=== PATIENT | female | born 1995 | race Caucasian/White ===

== ENCOUNTER 2022-06-28 20:11 | Emergency (ER) | payer OTHER ==
[2022-06-28 21:00] LABS: BASOPHIL 0.1 % (0-2); EOSINOPHIL 0.1 % (0-5); HGB 15.4 g/dl (12.5-16.0); LYMPHOCYTE 17.8 % (15-48); MCH 29.4 pg (25.0-31.0); MONOCYTE 4.3 % (0-12); MPV 10.2 fL (6.0-9.5); NEUTROPHIL 77.4 % (41-80); NRBC 0; PLT 209 K/uL (150-400); RBC 5.24 M/uL (4.20-5.40); RDW 12.4 % (11.5-14.0); WBC 7.9 K/uL (4.0-10.5)
[2022-06-28 21:19] LABS: BUN/CREAT RATIO (CALC) 23.9 RATIO; CREATININE 0.71 mg/dL (0.51-0.95); POTASSIUM 3.6 mmol/L (3.5-5.1)
[2022-06-28 21:26] LABS: BILIRUBIN 1+ mg/dL (NEGATIVE); BLOOD 1+ Ery/uL (NEGATIVE); CLARITY CLEAR (CLEAR); COLOR YELLOW (YELLOW); GLUCOSE (U) NORMAL (NORMAL); LEUKOCYTES 3+ Leu/uL (NEGATIVE); NITRITE NEGATIVE (NEGATIVE); PROTEIN 1+ mg/dL (NEGATIVE); SPECIFIC GRAVITY 1.025 (1.001-1.030); UROBILINOGEN 0.2 mg/dL (0.2-1.0)
[2022-06-28 21:47] LABS: BACTERIA 4+
[2022-06-28] MEDS ORDERED: PERCOCET 5-3251 EACH PO (23:09)
[2022-06-28] MEDS ORDERED: CIPRO500 MG PO (23:09)
== END 2022-06-28 23:30 | disposition home or self-care (01) ==
LOC: FER 20:11
PROVIDERS: Nurse Practitioner Family
DX: N39.0 Urinary tract infection, site not specified (principal); Z87.442 Personal history of urinary calculi; Z88.1 Allergy status to other antibiotic agents; Z79.899 Other long term (current) drug therapy
CPT/HCPCS: 36415; 80048; 81001; 85025; J1885; J2270; J2405; J2550; J7030; Q9967